=== PATIENT | female | born 1940 | race Caucasian/White ===

== ENCOUNTER 2023-09-04 17:13 | Inpatient (IN) | payer OTHER ==
[~2023-09-04] VITALS: Ht 121.9 cm; Wt 59.0 kg
[~2023-09-04 17:13] MED LIST: LEVEMIR100 U/ML; METFORMIN HCL500 MG; NAMENDA XR28 MG; XARELTO15 MG PO
--- NOTE | 2023-09-04 17:41 | NUR ---
PTE DESORIENTADA Y ACOMPANDA DE FAMILIAR QUIEN REFIERE PTE CHANG ESTADO PRESENTANDO FIEBRE Y SERAFIN REFLEJA MALESTAR. AL MOMENTO PTE NO HABLA, PUES PADECE ALZHEIMERS. EN TIRAGE TEMP DE PTE ES DE 100.0F Y AZUCAR EN HOOD RESULTO 265MG/DL. SE MIDEN MATIAS DE SV Y SE UBIUCA.
[2023-09-04] MEDS ORDERED: 0.9 % SODIUM CHLORIDE 1,000 ML IV SCH ×2 (18:00→22:30)
--- NOTE | 2023-09-04 18:26 | NUR ---
SE CANALIZA PACIENTE Y SE COLOCA IVFS. SE KOLTON MUESTRAS DE LABORATORIO Y SE ENVIAN. SE COLOCA TOBIAS Y SE ANSHUL U/A Y U/C. SE EDUCA FAMILIAR DE PACIENTE SOBRE EL [place] MEDICO Y ESTA REFIERE ENTENDER
[2023-09-04 18:37] LABS: PH,URINE 5.5 (5.0-8.0); URINE APPEARANCE Turbid; URINE BILIRRUBIN Negative (NEGATIVE); URINE BLOOD Moderate; URINE COLOR Yellow; URINE GLUCOSE Negative (NEGATIVE); URINE LEUKOCYTE Large; URINE NITRATE Negative; URINE UROBILINOGEN 0.2 E.U./dl
[2023-09-04 18:38] LABS: URINE EPITHELIAL CELLS 20.4 uL (0.0-38.8); URINE RBC 9.1 uL (0.0-20.8); URINE WBC 1671.6 uL (0.0-23.2)
[2023-09-04 18:41] LABS: HEMATOCRIT 35.8 % (36.0-45.00); MEAN CELL VOLUME 92.1 fL (80.00-100.00); MEAN CORPUSCULAR HEMOGLOBIN 30.9 pg (27.00-32.0); MEAN CORPUSCULAR HGB CONC 33.6 g/dl (32.0-36.0); PLATELET COUNT 264 K/uL (150-450); RED BLOOD COUNT 3.89 M/uL (4.00-6.00); RED CELL DISTRIBUTION WIDTH 13.5 % (11.5-14.5)
[2023-09-04 19:00] LABS: URINE BACTERIA > 9821.5 uL (0.0-1933); URINE PROTEIN 100 (NEGATIVE)
[2023-09-04 19:02] LABS: CALCIUM 10.6 mg/dL (8.5-10.1); CREATININE SERUM 1.67 mg/dL (0.55-1.02); GFR 29.3; POTASSIUM 3.89 mEq/L (3.5-5.1)
[2023-09-04 19:14] LABS: ABG PH 7.485 (7.35-7.45); ABG PO2 79.2 mmHg (80-100); ABG pCO2 27.7 mmHg (35-45); BASE EXCESS -3.3 mmol/l; BICARBONATE 18.2 mmol/l (23-25); SaO2 96.5 %; o2 21 %
[2023-09-04 19:15] LABS: allen test SATISFACTORY; puncture site RADIAL RIGHT
[2023-09-04] MEDS ORDERED: DEXTROSE 50 % IN WATER 0.5 G/ML DISP.SYRIN IV PRN (22:30)
[2023-09-04] MEDS ORDERED: ACETAMINOPHEN 500 MG GEL..CAP PO PRN (22:30)
[2023-09-04] MEDS ORDERED: INSULIN LISPRO 1,000 UNIT/10 ML UNITS SUBCUTANEO PRN (22:30)
[2023-09-04] MEDS ORDERED: ONDANSETRON HCL 4 MG in DEXTROSE 5 % IN WATER 50 ML IV PRN (22:30)
[2023-09-05 05:08] LABS: HEMATOCRIT 30.5 % (36.0-45.00); HEMOGLOBIN 10.2 g/dL (12.0-15.00); MEAN CORPUSCULAR HEMOGLOBIN 30.9 pg (27.00-32.0); MEAN CORPUSCULAR HGB CONC 33.6 g/dl (32.0-36.0); PLATELET COUNT 231 K/uL (150-450); RED BLOOD COUNT 3.31 M/uL (4.00-6.00); RED CELL DISTRIBUTION WIDTH 13.6 % (11.5-14.5)
[2023-09-05 05:31] LABS: INR 1.08; PARTIAL THROMBOPLASTIN TIME 31.9 SECONDS (22.0-34.0); PROTHROMBIN TIME 11.3 SECONDS (9.0-11.5)
[2023-09-05 05:39] LABS: CALCIUM 9.5 mg/dL (8.5-10.1); CREATININE SERUM 1.35 mg/dL (0.55-1.02); GFR 37.45; POTASSIUM 3.69 mEq/L (3.5-5.1)
[2023-09-05] MEDS ORDERED: SODIUM CHLORIDE 0.45 % 1,000 ML IV SCH (08:00)
[2023-09-05] MEDS ORDERED: CEFTRIAXONE SODIUM 2,000 MG in DEXTROSE 5 % IN WATER 100 ML IV SCH (09:00)
[2023-09-05] MEDS ORDERED: ENOXAPARIN SODIUM 40 MG/0.4 ML SYRINGE SUBCUTANEO SCH (09:00)
[2023-09-05] MEDS ORDERED: PANTOPRAZOLE SODIUM 40 MG/VIAL VIAL IV SCH (09:00)
[2023-09-05] MEDS ORDERED: QUETIAPINE FUMARATE 25 MG TABLET PO SCH (21:00)
[2023-09-06] MEDS ORDERED: NOREPINEPHRINE BITARTRATE 8 MG in DEXTROSE 5 % IN WATER 250 ML IV SCH (21:15)
[2023-09-06] MEDS ORDERED: NOREPINEPHRINE BITARTRATE 1 MG/ML AMPUL IV ONE (21:17)
[2023-09-07 07:53] LABS: URINE APPEARANCE Cloudy; URINE BILIRRUBIN Negative (NEGATIVE); URINE BLOOD Moderate; URINE COLOR Yellow; URINE GLUCOSE Negative (NEGATIVE); URINE LEUKOCYTE Large; URINE NITRATE Negative; URINE PROTEIN 30 (NEGATIVE); URINE UROBILINOGEN 0.2 E.U./dl
[2023-09-07 07:54] LABS: URINE BACTERIA 416.9 uL (0.0-1933); URINE EPITHELIAL CELLS 41.8 uL (0.0-38.8); URINE RBC 8.6 uL (0.0-20.8); URINE WBC 449.1 uL (0.0-23.2)
[2023-09-07] MEDS ORDERED: ENOXAPARIN SODIUM 30 MG/0.3 ML SYRINGE SUBCUTANEO SCH (09:00)
[2023-09-07] MEDS ORDERED: NOREPINEPHRINE BITARTRATE 1 MG/ML AMPUL IV ONE (14:40)
[2023-09-07 15:47] LABS: HEMATOCRIT 32.2 % (36.0-45.00); HEMOGLOBIN 10.6 g/dL (12.0-15.00); MEAN CELL VOLUME 89.1 fL (80.00-100.00); MEAN CORPUSCULAR HEMOGLOBIN 29.3 pg (27.00-32.0); MEAN CORPUSCULAR HGB CONC 32.9 g/dl (32.0-36.0); PLATELET COUNT 193 K/uL (150-450); RED BLOOD COUNT 3.62 M/uL (4.00-6.00); RED CELL DISTRIBUTION WIDTH 14.1 % (11.5-14.5)
[2023-09-07 15:54] LABS: ALBUMIN 2.1 gm/dL (3.4-5.0); BILIRUBIN TOTAL 0.46 mg/dL (0.3-1.2); CALCIUM 8.8 mg/dL (8.5-10.1); CREATININE SERUM 0.94 mg/dL (0.55-1.02); GFR 56.87; GLOBULINA 3.7 G/DL (2.4-3.5); MAGNESIUM 2.2 mg/dL (1.8-2.4); POTASSIUM 3.88 mEq/L (3.5-5.1); TOTAL PROTEIN 5.8 gm/dL (6.4-8.2)
[2023-09-07 16:00] LABS: C-REACTIVE PROTEIN 18.3 MG/DL (0.00-0.29)
[2023-09-07 16:25] LABS: PHOSPHOROUS 1.7 mg/dL (2.5-4.9)
[2023-09-08 08:19] LABS: HEMATOCRIT 33.1 % (36.0-45.00); HEMOGLOBIN 11.1 g/dL (12.0-15.00); MEAN CELL VOLUME 90.2 fL (80.00-100.00); MEAN CORPUSCULAR HEMOGLOBIN 30.2 pg (27.00-32.0); MEAN CORPUSCULAR HGB CONC 33.4 g/dl (32.0-36.0); PLATELET COUNT 198 K/uL (150-450); RED BLOOD COUNT 3.67 M/uL (4.00-6.00); RED CELL DISTRIBUTION WIDTH 14.3 % (11.5-14.5)
[2023-09-08 09:09] LABS: ALBUMIN 2.1 gm/dL (3.4-5.0); BILIRUBIN TOTAL 0.36 mg/dL (0.3-1.2); CALCIUM 9.1 mg/dL (8.5-10.1); CREATININE SERUM 0.87 mg/dL (0.55-1.02); GFR 62.18; GLOBULINA 3.8 G/DL (2.4-3.5); POTASSIUM 3.75 mEq/L (3.5-5.1); TOTAL PROTEIN 5.9 gm/dL (6.4-8.2)
[2023-09-08] MEDS ORDERED: MORPHINE SULFATE 2 MG/ML CARTRIDGE IV PRN (12:30)
[2023-09-08] MEDS ORDERED: LORazepam 2 MG/ML VIAL IV PRN (12:30)
[2023-09-08] MEDS ORDERED: DEXTROSE 5 % IN WATER 1,000 ML IV SCH (12:45)
[2023-09-08] MEDS ORDERED: POTASSIUM PHOS,M-BASIC-D-BASIC 18 MM in 0.9 % SODIUM CHLORIDE 250 ML IV ONE (14:00)
[2023-09-08] MEDS ORDERED: QUETIAPINE FUMARATE 25 MG TABLET PO SCH (17:00)
[2023-09-08] MEDS ORDERED: CLONAZEPAM 0.5 MG TABLET PO SCH (21:00)
[2023-09-09 10:51] LABS: HEMATOCRIT 27.7 % (36.0-45.00); HEMOGLOBIN 9.4 g/dL (12.0-15.00); MEAN CELL VOLUME 90.2 fL (80.00-100.00); MEAN CORPUSCULAR HEMOGLOBIN 30.5 pg (27.00-32.0); MEAN CORPUSCULAR HGB CONC 33.9 g/dl (32.0-36.0); PLATELET COUNT 192 K/uL (150-450); RED BLOOD COUNT 3.07 M/uL (4.00-6.00)
[2023-09-09 11:13] LABS: CREATININE SERUM 0.79 mg/dL (0.55-1.02); GFR 69.5; POTASSIUM 3.47 mEq/L (3.5-5.1)
[2023-09-10] MEDS ORDERED: POTASSIUM CHLORIDE IN WATER 100 ML IV SCH (13:00)
[2023-09-10 14:33] LABS: ABG PH 7.481 (7.35-7.45)
[2023-09-10 14:34] LABS: ABG pCO2 32.2 mmHg (35-45); BASE EXCESS 0.8 mmol/l; BICARBONATE 23.5 mmol/l (23-25); SaO2 97.7 %; Tco2 24.5 mmol/l; allen test SATISFACTORY; o2 21 %; puncture site RADIAL RIGHT
[2023-09-11 06:59] LABS: HEMATOCRIT 24.2 % (36.0-45.00); MEAN CELL VOLUME 90.3 fL (80.00-100.00); MEAN CORPUSCULAR HEMOGLOBIN 30.7 pg (27.00-32.0); PLATELET COUNT 254 K/uL (150-450); RED BLOOD COUNT 2.67 M/uL (4.00-6.00); RED CELL DISTRIBUTION WIDTH 13.8 % (11.5-14.5)
[2023-09-11 07:04] LABS: HEMOGLOBIN 8.2 g/dL (12.0-15.00)
[2023-09-11 07:34] LABS: CALCIUM 7.3 mg/dL (8.5-10.1); CREATININE SERUM 0.69 mg/dL (0.55-1.02); GFR 81.25; MAGNESIUM 1.8 mg/dL (1.8-2.4); PHOSPHOROUS 2.1 mg/dL (2.5-4.9); POTASSIUM 3.37 mEq/L (3.5-5.1)
[2023-09-11] MEDS ORDERED: FUROsemide 20 MG/2 ML VIAL IV SCH (10:45)
[2023-09-11] MEDS ORDERED: POTASSIUM PHOS,M-BASIC-D-BASIC 18 MM in 0.9 % SODIUM CHLORIDE 250 ML IV ONE (12:00)
[2023-09-12] MEDS ORDERED: ENOXAPARIN SODIUM 40 MG/0.4 ML SYRINGE SUBCUTANEO SCH (09:00)
[2023-09-12 11:42] LABS: ob POSITIVE (NEGATIVE)
[2023-09-12 15:43] LABS: FERRITIN 180.5 NG/ML (8-252)
[2023-09-12] MEDS ORDERED: Cyanocobalamin/Mecobalamin 1 TAB.SL SL SCH (17:00)
[2023-09-12] MEDS ORDERED: VITAMIN B COMPLEX 1 EACH PO SCH (17:00)
[2023-09-12] MEDS ORDERED: POTASSIUM CHLORIDE 20MEQ/100ML H2O PB IV ONE (19:10)
[2023-09-13] MEDS ORDERED: SOD FERRIC GLUC COMPLX/SUCROSE 62.5 MG/5 ML AMPUL IV SCH (09:00)
[2023-09-13 09:43] LABS: HEMATOCRIT 35.5 % (36.0-45.00); HEMOGLOBIN 12.3 g/dL (12.0-15.00); MEAN CELL VOLUME 88.4 fL (80.00-100.00); MEAN CORPUSCULAR HEMOGLOBIN 30.6 pg (27.00-32.0); MEAN CORPUSCULAR HGB CONC 34.6 g/dl (32.0-36.0); PLATELET COUNT 264 K/uL (150-450); RED BLOOD COUNT 4.01 M/uL (4.00-6.00); RED CELL DISTRIBUTION WIDTH 14.2 % (11.5-14.5)
[2023-09-13 10:43] LABS: ALBUMIN 1.7 gm/dL (3.4-5.0); BILIRUBIN TOTAL 0.49 mg/dL (0.3-1.2); CALCIUM 7.6 mg/dL (8.5-10.1); CREATININE SERUM 0.66 mg/dL (0.55-1.02); GFR 85.53; GLOBULINA 4.1 G/DL (2.4-3.5); MAGNESIUM 1.9 mg/dL (1.8-2.4); POTASSIUM 4.28 mEq/L (3.5-5.1); TOTAL PROTEIN 5.8 gm/dL (6.4-8.2)
[2023-09-13] MEDS ORDERED: POTASSIUM PHOS,M-BASIC-D-BASIC 45mM/15ml VIAL IV SCH (18:00)
[2023-09-13] MEDS ORDERED: ENOXAPARIN SODIUM 60 MG/0.6 ML SYRINGE SUBCUTANEO SCH (21:00)
[2023-09-14] MEDS ORDERED: RIVAROXABAN 20 MG TABLET PO SCH (09:00)
[2023-09-14 10:11] LABS: CA 125 15.9 U/mL (0.0-38.1); CA 15-3 14.8 U/mL (0.0-25.0)
[2023-09-15 07:20] LABS: HEMATOCRIT 33.9 % (36.0-45.00); HEMOGLOBIN 11.5 g/dL (12.0-15.00); MEAN CELL VOLUME 88.3 fL (80.00-100.00); PLATELET COUNT 296 K/uL (150-450); RED BLOOD COUNT 3.84 M/uL (4.00-6.00)
[2023-09-15 08:03] LABS: ALBUMIN 1.7 gm/dL (3.4-5.0); BILIRUBIN TOTAL 0.56 mg/dL (0.3-1.2); CALCIUM 7.9 mg/dL (8.5-10.1); CREATININE SERUM 0.7 mg/dL (0.55-1.02); GFR 79.91; GLOBULINA 4.1 G/DL (2.4-3.5); MAGNESIUM 1.9 mg/dL (1.8-2.4); PHOSPHOROUS 2.2 mg/dL (2.5-4.9); POTASSIUM 4.25 mEq/L (3.5-5.1); TOTAL PROTEIN 5.8 gm/dL (6.4-8.2)
[2023-09-15 08:12] LABS: C-REACTIVE PROTEIN 12.1 MG/DL (0.00-0.29)
[2023-09-15] MEDS ORDERED: ENOXAPARIN SODIUM 60 MG/0.6 ML SYRINGE SUBCUTANEO SCH (09:00)
[2023-09-15] MEDS ORDERED: NYSTATIN 15 GM,SILVER SULFADIAZINE 50 GM,ZINC OXIDE 30 GM TOP SCH (11:01)
[2023-09-16] MEDS ORDERED: SOD FERRIC GLUC COMPLX/SUCROSE 62.5 MG/5 ML AMPUL IV SCH (09:00)
== END 2023-09-15 12:54 | disposition home or self-care (01) | DRG 872 ==
LOC: ER 17:13 → MEDI 22:28
PROVIDERS: Emergency Medicine; Internal Medicine; Internal Medicine Hematology & Oncology; Internal Medicine Infectious Disease; Internal Medicine Nephrology; ADMIT Internal Medicine; ATTEND Internal Medicine
PROC: BW21ZZZ Computerized Tomography (CT Scan) of Abdomen and Pelvis (ICD-10-PCS; 2023-09-04)
PROC: B24BYZZ Ultrasonography of Heart with Aorta using Other Contrast (ICD-10-PCS; 2023-09-06)
PROC: BT43ZZZ Ultrasonography of Bilateral Kidneys (ICD-10-PCS; 2023-09-06)
PROC: 30243N1 Transfusion of Nonautologous Red Blood Cells into Central Vein, Percutaneous Approach (ICD-10-PCS; principal; 2023-09-12)
PROC: 02HV33Z Insertion of Infusion Device into Superior Vena Cava, Percutaneous Approach (ICD-10-PCS; 2023-09-12)
PROC: B54DZZZ Ultrasonography of Bilateral Lower Extremity Veins (ICD-10-PCS; 2023-09-12)
DX: A41.9 Sepsis, unspecified organism (principal); N39.0 Urinary tract infection, site not specified; N17.9 Acute kidney failure, unspecified; I82.403 Acute embolism and thrombosis of unspecified deep veins of lower extremity, bilateral; G30.9 Alzheimer's disease, unspecified; F02.80 Dementia in other diseases classified elsewhere, unspecified severity, without behavioral disturbance, psychotic disturbance, mood disturbance, and anxiety; Z74.01 Bed confinement status; N18.9 Chronic kidney disease, unspecified; B96.20 Unspecified Escherichia coli [E. coli] as the cause of diseases classified elsewhere; D64.9 Anemia, unspecified; E11.9 Type 2 diabetes mellitus without complications; Z79.4 Long term (current) use of insulin